=== PATIENT | female | born 1945 | race Caucasian/White ===

== ENCOUNTER 2017-09-25 21:07 | Emergency (ER) | payer OTHER ==
[2017-09-25 21:13] VITALS: PULSE 82; TEMP 99; BMI 28.7
[2017-09-25 21:25] VITALS: BP 177/89
--- NOTE | 2017-09-25 22:35 | PDOC ---
History of Present Illness - General Chief Complaint: Injury Stated Complaint: FALL INJURY Time Seen by Provider: 09/25/17 22:34 Past History - Past Medical History Allergies/Adverse Reactions: Allergies Allergy/AdvReac Type Severity Reaction Status Date / Time Sulfa (Sulfonamide Allergy Verified 04/19/13 11:35 Antibiotics) Home Medications: Ambulatory Orders Furosemide 5 mg PO DAILY 09/25/17 Metformin HCl 750 mg PO DAILY 09/25/17 Rivaroxaban [Xarelto -] 20 mg PO DAILY 09/25/17 Simvastatin 10 mg PO 09/25/17 HTN: Yes Hypercholesterolemia: Yes Thyroid Disease: Yes - Suicide/Smoking/Psychosocial Hx Smoking Status: No Smoking History: Never smoked Have you smoked in the past 12 months: No Number of Cigarettes Smoked Daily: 0 Information on smoking cessation initiated: No Hx Alcohol Use: No Drug/Substance Use Hx: No *Physical Exam - Vital Signs Last Vital Signs Temp Pulse Resp BP Pulse Ox 99 F 82 18 177/89 98 09/25/17 21:11 09/25/17 21:11 09/25/17 21:11 09/25/17 21:11 09/25/17 21:11 *DC/Admit/Observation/Transfer - Attestations Physician Attestion: 09/25/17 22:35 I, Dr. Ramírez Sarmiento, attest that this document has been prepared under my direction and personally reviewed by me in its entirety. I further attest, that it accurately reflects all work, treatment, procedures and medical decision -making performed by me.
--- NOTE | 2017-09-25 22:38 | PDOC ---
History of Present Illness - General Chief Complaint: Injury Stated Complaint: FALL INJURY Time Seen by Provider: 09/25/17 22:34 - History of Present Illness Initial Comments: 72 year old female with PMH of afib, DM (non-insluin dependent), and HLD presenting 5 hours after head trauma after mechanical fall and occipital head trauma. She did not lose consciousness or experience any focal neurological deficit directly after the fall or at any point after. She presented to the ED because she wanted the scalp laceration evaluated. Denies fevers, chills, nausea , vomiting, diarrhea, visual changes, or any other symptoms. 09/25/17 22:42 Past History - Past Medical History Allergies/Adverse Reactions: Allergies Allergy/AdvReac Type Severity Reaction Status Date / Time Sulfa (Sulfonamide Allergy Verified 04/19/13 11:35 Antibiotics) Home Medications: Ambulatory Orders Furosemide 5 mg PO DAILY 09/25/17 Metformin HCl 750 mg PO DAILY 09/25/17 Rivaroxaban [Xarelto -] 20 mg PO DAILY 09/25/17 Simvastatin 10 mg PO 09/25/17 HTN: Yes Hypercholesterolemia: Yes Thyroid Disease: Yes - Suicide/Smoking/Psychosocial Hx Smoking Status: No Smoking History: Never smoked Have you smoked in the past 12 months: No Number of Cigarettes Smoked Daily: 0 Information on smoking cessation initiated: No Hx Alcohol Use: No Drug/Substance Use Hx: No Review of Systems - Review of Systems Constitutional: No: Chills, Fever, Loss of Appetite HEENTM: No: Eye Pain, Blurred Vision Respiratory: No: Cough, Shortness of Breath Cardiac (ROS): No: Chest Pain, Edema ABD/GI: No: Constipated, Diarrhea, Nausea, Vomiting : No: Burning, Dysuria, Discharge, Incontinence Musculoskeletal: No: Joint Pain Integumentary: No: Change in Color Neurological: No: Numbness, Paresthesia, Tingling Psychiatric: No: Anxiety, Stressors *Physical Exam - Vital Signs Last Vital Signs Temp Pulse Resp BP Pulse Ox 99 F 82 18 177/89 98 09/25/17 21:11 09/25/17 21:11 09/25/17 21:11 09/25/17 21:11 09/25/17 21:11 - Physical Exam General Appearance: Yes: Nourished, Appropriately Dressed. No: Apparent Distress HEENT: positive: EOMI, SAKINA, Normal ENT Inspection, Normal Voice, Other ( Superior occiptal scalp abrasion that has clotted.) Neck: positive: Trachea midline, Normal Thyroid, Supple. negative: Tender, Rigid Respiratory/Chest: positive: Lungs Clear, Normal Breath Sounds. negative: Chest Tender, Respiratory Distress Cardiovascular: positive: Regular Rhythm, Regular Rate. negative: S1, S2, Murmur Gastrointestinal/Abdominal: positive: Normal Bowel Sounds, Flat, Soft. negative : Tender Musculoskeletal: positive: Normal Inspection, CVA Tenderness Extremity: positive: Normal Capillary Refill, Normal Inspection, Normal Range of Motion. negative: Tender Integumentary: positive: Normal Color, Dry, Warm ED Treatment Course - LABORATORY CBC & Chemistry Diagram: 09/25/17 23:18 09/25/17 23:18 Medical Decision Making - Medical Decision Making 72 year old female on Xarelto presenting 5 hours after fall and head trauma during which she did not lose consciousness and was fully neurologically intact for the past [address] her head without contrast to rule out bleed and will get basic labs in case. Onyl one CT scan will be adequate as we will perform her CT approximately 6 hours after the trauma. 09/25/17 23:12 Patient signed out to Dr. Anand in stable condition pending CT head and lab results. 09/25/17 23:55 *DC/Admit/Observation/Transfer Diagnosis at time of Disposition: Traumatic injury of head Qualifiers: Encounter type: initial encounter Qualified Code(s): S09.90XA - Unspecified injury of head, initial encounter; S09.90XA - Unspecified injury of head, initial encounter - Referrals Referrals: Amilcar Cota MD, [Primary Care Provider] - - Patient Instructions - Post Discharge Activity
--- NOTE | 2017-09-25 23:04 | PDOC ---
Attending Attestation - Resident Resident Name: Zoë Roy - ED Attending Attestation I have performed the following: I have examined & evaluated the patient, The case was reviewed & discussed with the resident, I agree w/resident's findings & plan, Exceptions are as noted - HPI HPI: 09/25/17 23:03 Fall, Hit Head, On Xarelto, 6 hours ago, small lac - Physicial Exam PE: 09/25/17 23:03 Bleeding controlled, Alert, Oriented - Medical Decision Making 09/25/17 23:[address] Roy's Assessment and Plan
[2017-09-25 23:26] LABS: BASOPHIL 0.5 % (0-2.0); EOSINOPHIL 0.5 % (0-4.5); MCH 31.6 pg (25.7-33.7); MCHC 35.1 g/dl (32.0-36.0); MEAN PLT VOLUME 9.5 fl (7.5-11.1); NEUTROPHILS 78.5 % (42.8-82.8); PLATELET COUNT 234 K/MM3 (134-434); RDW 13.1 % (11.6-15.6); WHITE BLOOD COUNT 10.3 K/mm3 (4.0-10.0)
[2017-09-25 23:48] LABS: INR 1.55 (0.82-1.09); PROTHROMBIN TIME (PATIENT) 17.5 SEC (9.98-11.88)
[2017-09-26] LABS: ALBUMIN 3.7 g/dl (3.4-5.0); ALK PHOS 113 U/L (45-117); ANION GAP 12 (8-16); BILIRUBIN,TOTAL 0.4 mg/dL (0.2-1.0); CALCIUM 8.5 mg/dL (8.5-10.1); CO2 26 mmol/L (21-32); CREATININE 0.7 mg/dL (0.55-1.02); GLUCOSE,RANDOM 207 mg/dL (74-106); SGOT/AST 8 U/L (15-37); SGPT/ALT 23 U/L (12-78); TOT PROT 7.2 g/dl (6.4-8.2)
--- NOTE | 2017-09-26 00:57 | PDOC ---
*Physical Exam - Vital Signs Last Vital Signs Temp Pulse Resp BP Pulse Ox 99 F 82 18 177/89 98 09/25/17 21:11 09/25/17 21:11 09/25/17 21:11 09/25/17 21:11 09/25/17 21:11 - Physical Exam General Appearance: Yes: Nourished, Appropriately Dressed HEENT: positive: EOMI, SAKINA Respiratory/Chest: positive: Lungs Clear Cardiovascular: positive: S1, S2 Gastrointestinal/Abdominal: positive: Soft Integumentary: positive: Other (5 cm superior occipital scalp laceration; clotted/not actively bleeding) Neurologic: positive: astronautical engineer II-XII NML intact, Fully Oriented, Alert, Motor Strength 5/5, Other (Normal Gait). negative: Confused, Disoriented ED Treatment Course - LABORATORY CBC & Chemistry Diagram: 09/25/17 23:18 09/25/17 23:18 - ADDITIONAL ORDERS Additional order review: Laboratory Results 09/25/17 09/25/17 23:18 23:18 PT with INR 17.50 H INR 1.55 H Sodium 140 Potassium 3.7 Chloride 102 Carbon Dioxide 26 Anion Gap 12 BUN 14 Creatinine 0.7 Creat Clearance w eGFR > 60 Random Glucose 207 H Calcium 8.5 Total Bilirubin 0.4 AST 8 L ALT 23 Alkaline Phosphatase 113 Total Protein 7.2 Albumin 3.7 09/25/17 23:18 RBC 4.38 MCV 90.0 MCHC 35.1 RDW 13.1 MPV 9.5 Neutrophils % 78.5 Lymphocytes % 14.1 Monocytes % 6.4 Eosinophils % 0.5 Basophils % 0.5 Medical Decision Making - Medical Decision Making 09/26/17 01:23 Patient signed out by Dr. Roy (Resident) under the care of Dr. Sarmiento (Attending ) Patient is a 72 y.o. female who presents after a mechanical fall without any LOC. During entire ED course patient was alert, neurologically intact and denies any mental status changes or visual disturbances. CT Head was negative for acute intracranial process. Patient had a 5 cm scalp laceration at the superior occipital lobe that was cleaned and clinical decision was made to not scalp or hair knot tie the laceration as clot had formed. As patient is on Rivaroxaban, patient was counseled on the importance of returning to ED should she experience repeat bleed in addition to being counseled on general return precautions. At the time of discharge patient was improved, ambulatory and understood her post discharge care. *DC/Admit/Observation/Transfer Diagnosis at time of Disposition: Head trauma Qualifiers: Encounter type: initial encounter Qualified Code(s): S09.90XA - Unspecified injury of head, initial encounter - Discharge Dispostion Disposition: HOME Condition at time of disposition: Good - Referrals Referrals: Amilcar Cota MD, MD [Primary Care Provider] - - Patient Instructions Additional Instructions: Please return to the Emergency Department should you have any worsening or concerning symptoms including confusion, vomiting or severe headache. Please follow up with your PCP in the next 1 week. - Post Discharge Activity
== END 2017-09-26 01:27 | disposition home or self-care (01) ==
LOC: JER 21:07
DX: S01.01XA Laceration without foreign body of scalp, initial encounter (principal); W07.XXXA Fall from chair, initial encounter; Y93.89 Activity, other specified; Y92.018 Other place in single-family (private) house as the place of occurrence of the external cause; I48.91 Unspecified atrial fibrillation; Z79.01 Long term (current) use of anticoagulants; I10 Essential (primary) hypertension; Z79.84 Long term (current) use of oral hypoglycemic drugs; E78.00 Pure hypercholesterolemia, unspecified; E11.9 Type 2 diabetes mellitus without complications
CPT/HCPCS: 36415; 70450-TC; 80053; 85025; 85610; 99281-25

== ENCOUNTER → 2018-08-31 | Day surgery (SDC) | payer OTHER ==
--- NOTE | 2018-09-02 11:04 | PATH ---
Surgical Pathology Report Patient Name: PILAR WHIPPLE [facility]. Rec. #: [id number] /Age/Gender: 1945 (Age: 73) / F Account: [id number] Location: [facility]OLOG[facility] Taken: 08/31/2018 Received: 08/31/2018 Reported: 09/02/2018 Physicians: Cassie Infante Specimen(s) Received RIGHT BREAST 2:30 1.78CM Clinical History Palpable mass suspicious for malignant Final Diagnosis RIGHT BREAST, 2-3:00, ULTRASOUND GUIDED BIOPSY: INVASIVE DUCTAL CARCINOMA, POORLY DIFFERENTIATED. THE CARCINOMA MEASURES AT LEAST 1 CM IN THIS SLIDE. Results of Estrogen Receptor (ER) and Progesterone Receptor (MN) studies performed on block "1" at [facility] are as follows: ER (clone [id number] mouse monoclonal antibody by [employer]): 100% nuclear staining with strong intensity (Positive). MN (clone16 mouse monoclonal antibody by [employer]): 30% nuclear staining with strong intensity (Positive). Reports for Her 2 and Ki-67 are pending. This case was discussed with Dr. Cline on September 02, 2018. Electronically Signed Tony Messina M.D. Addendum Reported: 09/04/2018 Addendum Diagnosis Biomarker Studies Results of Her2 (IHC) & Ki-67 studies performed on this specimen at [place], [place] ([id number]) interpreted at [facility] are as follows: Her2 IHC (EP3 from [employer], formerly known as [id number], using Corado Polymer Refine detection kit): Negative (0) Ki-67: 40% (high proliferative index) Tony Messina M.D. Gross Description Received in formalin labeled "right breast 2-3;00 palpable suspicious mass ultrasound guided core biopsy" are multiple bee to yellow cylindrical portions of fibroadipose tissue ranging from 1-1.5 cm in length and averages 0.2 cm in diameter. The specimen is entirely submitted in 2 cassettes. Time from tissue taken to put in formalin: Less than one minute Total formalin fixation time: Between 9-10 hours. DONNA/08/31/2018 rob/08/31/2018
== END | disposition home or self-care (01) ==
LOC: JRADUS-SUR 12:06
PROVIDERS: ATTEND Specialist
PROC: 0HBT3ZX Excision of Right Breast, Percutaneous Approach, Diagnostic (ICD-10-PCS; principal; 2018-08-31)
DX: C50.411 Malignant neoplasm of upper-outer quadrant of right female breast (principal); Z17.0 Estrogen receptor positive status [ER+]; N63.12 Unspecified lump in the right breast, upper inner quadrant
CPT/HCPCS: 19083; 77065-TC; 87899; 88305-TC; A4648

== ENCOUNTER 2018-10-06 12:50 | Day surgery (SDC) | payer OTHER ==
[2018-09-24 15:43] VITALS: BMI 29.2
--- NOTE | 2018-10-01 11:34 | HP ---
Admitting History and Physical - Primary Care Physician PCP: Tatiana Giordano - Admission Chief Complaint: Right breast cancer History of Present Illness: 73 year old postmenapausal female with right breast mass noted. Mammogram08/2018 showed 1.8 cm irregular mass 2 to 3:00. Right breast US showed 1.9x1.3x1.4 cm irregular mass. 08/2018 Right US core biopsy invasive ductal carcinoma ER+AL+ HER2-.. Breast MRI showed localized cancer. History Source: Patient Limitations to Obtaining History: No Limitations - Past Medical History Cardiovascular: Yes: AFIB (on xeralto), HTN, Hyperlipdemia ENT: Yes: Other (allergies) Endocrine: Yes: Diabetes Mellitus - Smoking History Smoking history: Never smoked Have you smoked in the past 12 months: No Aproximately how many cigarettes per day: 0 - Alcohol/Substance Use Hx Alcohol Use: Yes (occ glass of wine) Home Medications - Allergies Allergies/Adverse Reactions: Allergies Allergy/AdvReac Type Severity Reaction Status Date / Time Sulfa (Sulfonamide Allergy Verified 09/24/18 15:30 Antibiotics) - Home Medications Home Medications: Ambulatory Orders Rivaroxaban [Xarelto -] 20 mg PO DAILY 09/25/17 metFORMIN HCL [Metformin HCl] 750 mg PO DAILY 09/25/17 Amlodipine Besylate 5 mg PO DAILY 09/24/18 Atenolol [Tenormin] 50 mg PO DAILY 09/24/18 Furosemide [Lasix -] 20 mg PO ASDIR 09/24/18 Levothyroxine [Synthroid -] 100 mcg PO DAILY 09/24/18 Simvastatin 40 mg PO DAILY 09/24/18 Family Disease History - Family Disease History Family Disease History: CA: Father (lung ca 52) Physical Examination Constitutional: Yes: No Distress Breast(s): Yes: Other (right breast at 2;30 10 cmFN 2.0 cm firm mass left negative no adenopathy) Problem List - Problems (1) Breast cancer, right breast Code(s): C50.911 - MALIGNANT NEOPLASM OF UNSP SITE OF RIGHT FEMALE BREAST Qualifiers: Breast location: upper inner quadrant of breast Estrogen receptor status: positive Patient sex: female Qualified Code(s): C50.211 - Malignant neoplasm of upper-inner quadrant of right female breast; Z17.0 - Estrogen receptor positive status [ER+] Assessment/Plan Right breast wide excision , lymphoscintogram sentenel node biopsy , possible axillary node dissection
[2018-10-06] MEDS ORDERED: ISOSULFAN BLUE 10 MG/ML VIAL SQ ONE (13:07)
[2018-10-06] MEDS ORDERED: BUPIVACAINE HCL/PF 0.5% (5MG/ML) 10 ML VIAL ONE (13:07)
[2018-10-06] MEDS ORDERED: SUCCINYLCHOLINE CHLORIDE 200 MG/10 ML VIAL ONE (13:42)
[2018-10-06] MEDS ORDERED: PROPOFOL 20 ML ONE ×4 (13:42→14:51)
[2018-10-06] MEDS ORDERED: MIDAZOLAM HCL 2 MG/2 ML SINGLE DOSE VIAL ONE (13:43)
[2018-10-06] MEDS ORDERED: ONDANSETRON 4 MG/2 ML VIAL ONE ×2 (14:37→16:09)
[2018-10-06] MEDS ORDERED: ceFAZolin SODIUM 1 GM VIAL ONE (14:37)
[2018-10-06] MEDS ORDERED: oxyCODONE HCL 5 MG TABLET PO PRN ×2 (15:42)
[2018-10-06] MEDS ORDERED: ONDANSETRON 4 MG/2 ML VIAL IVPUSH PRN (15:42)
[2018-10-06] MEDS ORDERED: LACTATED RINGERS SOLUTION 1,000 ML IV SCH (15:45)
[2018-10-06 16:03] VITALS: TEMP 97.9
[2018-10-06] MEDS ORDERED: ONDANSETRON 4 MG/2 ML VIAL IVPUSH ONE (16:15)
--- NOTE | 2018-10-06 17:42 | OP ---
DATE OF OPERATION: 10/06/2018 PREOPERATIVE DIAGNOSIS: Right breast cancer. POSTOPERATIVE DIAGNOSIS: Right breast cancer. PROCEDURE: Right breast partial mastectomy with sentinel node biopsy and complex tissue transfer. ANESTHESIA: General, intubated. ATTENDING SURGEON: Tatiana Giordano MD MUNICIPAL FIREFIGHTER: CATHY Girard ESTIMATED BLOOD LOSS: Minimal. COMPLICATIONS: None. PROCEDURE: Patient was made aware of the risks and benefits of the procedure and consented. Preoperatively patient went to the nuclear medicine department where her right breast was injected into the peritumoral skin with radioactive tracer. She was then placed in a supine position on the operating room table. After general anesthesia was induced, the patient was intubated. Then 2.5 mL of 1% isosulfan blue were infiltrated into the peritumoral tissues. The operative site was then prepped and draped in usual sterile fashion. Waiting approximately 10 minutes with gentle manual compression, a curvilinear incision as made in the right axilla. Using blunt and sharp dissection tissues were dissected down to the axilla where 1 blue hot lymph node was identified as well as an adjacent node and these were excised and submitted for permanent sectioning. Palpation of the rest of the axilla and interrogation with the navigator showed no evidence of suspicious nodes or uptake. The wound was copiously irrigated with normal saline. Hemostasis was maintained by electrocautery. The wound was then closed with deep 3-0 Vicryl, followed by a running subcuticular 4-0 Monocryl. The right breast was then approached. An elliptical incision was made in the radial fashion overlying the breast mass which was very close to the skin. Using electrocautery, tissues were dissected down to the pectoral fascia, and the mass was excised and submitted with a short suture superior and long suture lateral. Specimen radiographed to confirm the presence of the index lesion and clip. Additional segments were taken superior, inferior, medial, lateral, and deep with clips at the new margin. No anterior margin was taken because the skin overlying the tumor was removed. Using electrocautery, thick skin flaps were made by taking the breast tissue off the pectoralis muscle which was then rotated into the defect and closed with multiple areas [id number] suture of 3-0 Vicryl. The skin was then closed with interrupted 3-0 Vicryl followed by running subcuticular 4-0 Monocryl. Steri-Strips, sterile dressing, and a compression bra were then applied. The patient tolerated the procedure and was transferred to recovery in excellent condition. Cassie [id number]
[2018-10-06 18:12] VITALS: BP 148/61; PULSE 54
--- NOTE | 2018-10-09 12:25 | PATH ---
Surgical Pathology Report Patient Name: PILAR WHIPPLE [facility]. Rec. #: [id number] /Age/Gender: 1945 (Age: 73) / F Account: [id number] Location: [facility] Taken: 10/06/2018 Received: 10/06/2018 Reported: 10/09/2018 Physicians: Tatiana Giordano M.D. Specimen(s) Received A: RIGHT AXILLARY SENTINEL NODES #1 B: RIGHT BREAST WIDE EXCISION C: SUPERIOR MARGIN RIGHT BREAST D: INFERIOR MARGIN RIGHT BREAST E: LATERAL MARGIN RIGHT BREAST F: MEDIAL MARGIN RIGHT BREAST G: POSTERIOR MARGIN RIGHT BREAST Clinical History Invasive breast carcinoma Final Diagnosis A. RIGHT AXILLARY SENTINEL NODES #1, EXCISION: TWO LYMPH NODES, NEGATIVE FOR METASTATIC CARCINOMA (0/2). B. RIGHT BREAST WIDE EXCISION: INVASIVE DUCTAL CARCINOMA, POORLY DIFFERENTIATED (TUBULE SCORE 3/3, NUCLEAR GRADE: 3/3, MITOTIC SCORE: 3/ 3, TOTAL MEHNAZ SCORE: 9/9), MEASURING 2.2 CM IN GREATEST DIMENSION (GROSS MEASUREMENT). MARGINS ARE UNINVOLVED BY INVASIVE CARCINOMA. THE INVASIVE CARCINOMA TO CLOSEST MARGIN (POSTERIOR MARGIN) IS 2 MM. DUCTAL CARCINOMA IN SITU (DCIS) PRESENT, HIGH NUCLEAR GRADE, WITH CENTRAL NECROSIS. DCIS IS AT 2 MM FROM THE CLOSEST MARGIN (POSTERIOR MARGIN). SEE ALSO SEPARATE ADDITIONAL SPECIMEN (C-G) FOR FINAL MARGINS. LYMPHOVASCULAR INVASION IS IDENTIFIED. SKIN IS PRESENT AND UNINVOLVED BY CARCINOMA. PRIOR BIOPSY SITE CHANGES ARE PRESENT. PATHOLOGIC STAGE (pTNM): pT2 pN0 SEE ALSO INVASIVE CARCINOMA CASE SUMMARY BELOW. C. SUPERIOR MARGIN, RIGHT BREAST, EXCISION: BENIGN BREAST TISSUE. D. INFERIOR MARGIN, RIGHT BREAST, EXCISION: BENIGN BREAST TISSUE. E. LATERAL MARGIN, RIGHT BREAST, EXCISION: BENIGN BREAST TISSUE. F. MEDIAL MARGIN, RIGHT BREAST, EXCISION: BENIGN BREAST TISSUE. G. POSTERIOR MARGIN, RIGHT BREAST, EXCISION: BENIGN BREAST TISSUE. Comments Breast Invasive Carcinoma: Surgical Pathology Case Summary (Based on AJCC TNM 8 th edition) Procedure _x_ Excision (less than total mastectomy) Specimen Laterality _x_ Right Tumor Size _x_ Greatest dimension of largest invasive focus >1 mm (specify exact measurement) (millimeters): 22 mm Histologic Type _x_ Invasive carcinoma of no special type (ductal, not otherwise specified) Histologic Grade (Mehnaz Histologic Score) Glandular (Acinar)/Tubular Differentiation _x_ Score 3 (<10% of tumor area forming glandular/tubular structures) Nuclear Pleomorphism _x_ Score 3 Mitotic Rate _x_ Score 3 Overall Grade _x_ Grade 3 (scores of 8 or 9) Tumor Focality _x_ Single focus of invasive carcinoma Ductal Carcinoma In Situ (DCIS) _x_ DCIS is present in specimen _x_ Positive for EIC Margins Invasive Carcinoma Margins _x_ Uninvolved by invasive carcinoma Distance from closest margin (millimeters): 2 mm Closest margin: posterior margin, also see specimen G for final margin DCIS Margins _x_ Uninvolved by DCIS Distance from closest margin (millimeters): 2 mm Closest margin: posterior margin, also see specimen G for final margin Regional Lymph Nodes Number of Lymph Nodes with Macrometastases (>2 mm): 0 Number of Lymph Nodes with Micrometastases (>0.2 mm to 2 mm and/or >200 cells): 0 Number of Lymph Nodes with Isolated Tumor Cells (=0.2 mm and =200 cells): 0 Number of Lymph Nodes Examined: 2 Number of Alba Nodes Examined: 2 Treatment Effect _x_ No known presurgical therapy Lymphovascular Invasion _x_ Present Pathologic Stage Classification (pTNM, AJCC 8th Edition) Primary Tumor (Invasive Carcinoma) (pT) pT2:Tumor >20 mm but =50 mm in greatest dimension Regional Lymph Nodes (pN) Modifier (required only if applicable) _x_ (sn): Alba node(s) evaluated. If 6 or more nodes (sentinel or nonsentinel) are removed, this modifier should not be used. Category (pN) _x_ pN0: No regional lymph node metastasis identified or ITCs only Biomarker Studies Results of ER and NH studies performed on prior biopsy ([id number]) at [facility] are as follows: ER (clone [id number] mouse monoclonal antibody by [employer]): 100 % nuclear staining with strong intensity (Positive). NH (clone16 mouse monoclonal antibody by [employer]): 30 % nuclear staining with strong intensity (Positive). Results of Her2 (IHC) & Ki-67 studies performed on prior biopsy ([id number]) at [place], [place] ([id number]) are as follows: Her2 IHC (EP3 from [employer], formerly known as [id number], using [employer]ado Polymer Refine detection kit): Negative (0) Ki67: 40% (high proliferative index) Positive and negative controls (internal if applicable) show appropriate results. Formalin fixation and cold ischemic times are within current ASCO/CAP recommendations for ER, NH and Her2 testing. Electronically Signed Tony Messina M.D. Gross Description A. Received in formalin labeled "right axillary sentinel node," are 2 bee lymph nodes with attached fat measuring 0.8 and 1.4 cm in greatest dimension. The lymph nodes are entirely submitted in 2 cassettes as follows: 1-one bisected lymph node; 2-one whole lymph node. B. Received in formalin, labeled "right breast wide excision," is a 5.0 x 4.7 x 2.9 cm. bee-yellow, irregular, portion of fibroadipose tissue. There is no needle localization wire present. There is a short suture marking the superior aspect and a long suture marking the lateral aspect, per the surgeon. The anterior surface displays a 3.4 x 1.6 cm bee, elliptical, unremarkable portion of skin. The specimen is inked as follows: Superior blue; inferior green; lateral red; medial yellow; posterior black. The specimen is serially sectioned from medial to lateral. Sectioning reveals a 2.2 x 1.7 x 1.6 cm bee, indurated mass at 0.1 cm from the posterior margin. There is a ragland metallic biopsy clip identified within the mass. The mass is 0.4 cm from the superior margin, 0.4 cm from the inferior margin and 0.5 cm from the medial margin. Manager Multicultural sections are submitted in 8 cassettes as follows: 1-mass with posterior margin; 2-additional mass with posterior margin; 3-mass with superior margin; 4-5-mass with inferior margin; 6-medial margin; 7-lateral margin; 8-skin. Time to formalin fixation: 29 minutes Total formalin fixation time: Approximately 27 hours. C. Received in formalin labeled "superior margin right breast," is a 2.2 x 1.4 x 0.4 cm portion of fibroadipose tissue with a clip marking the new margin, per the surgeon. The new margin is inked green and the specimen is serially sectioned. The specimen is entirely submitted in 3 cassettes. D. Received in formalin labeled "inferior margin right breast," is a 1.6 x 1.0 x 0.4 cm portion of fibroadipose tissue with a clip marking the new margin, the surgeon. The new margin is inked green and the specimen is serially sectioned. The specimen is entirely submitted in 2 cassettes. E. Received in formalin labeled "lateral margin right breast," is a 1.2 x 1.0 x 0.4 cm portion of fibroadipose tissue with a clip marking the new margin, per the surgeon. The new margin is inked green and the specimen is serially sectioned. The specimen is entirely submitted in 2 cassettes. F. Received in formalin labeled "medial margin right breast," is a 1.4 x 0.9 x 0.4 cm portion of fibroadipose tissue with a clip marking the new margin, per the surgeon. The new margin is inked green and the specimen is serially sectioned. The specimen is entirely submitted in 2 cassettes. G. Received in formalin labeled "posterior margin right breast," is a 3.0 x 1.8 x 0.4 cm portion of fibroadipose tissue with a clip marking the new margin, per the surgeon. The new margin is inked green and the specimen is serially sectioned. The specimen is entirely and sequentially submitted in 4 cassettes. 10/07/2018 saudi10/07/2018
== END 2018-10-06 18:00 | disposition home or self-care (01) ==
LOC: FASU 12:50
PROVIDERS: ATTEND Surgery Surgical Oncology
PROC: 0HBT0ZZ Excision of Right Breast, Open Approach (ICD-10-PCS; principal; 2018-10-06 14:00)
PROC: 0JX60ZC Transfer Chest Subcutaneous Tissue and Fascia with Skin, Subcutaneous Tissue and Fascia, Open Approach (ICD-10-PCS; 2018-10-06 14:00)
DX: C50.211 Malignant neoplasm of upper-inner quadrant of right female breast (principal); Z17.0 Estrogen receptor positive status [ER+]; I10 Essential (primary) hypertension; I48.91 Unspecified atrial fibrillation; E78.5 Hyperlipidemia, unspecified; E11.9 Type 2 diabetes mellitus without complications; Z79.01 Long term (current) use of anticoagulants
CPT/HCPCS: 78195-TC; 82962; 88307-TC; 94760; A9541

== ENCOUNTER 2024-01-26 15:26 | Emergency (ER) | payer OTHER ==
[2024-01-26] MEDS ORDERED: LIDOCAINE 5% TOPICAL PATCH ONE (16:59)
[2024-01-26] MEDS: LIDOCAINE 5% TOPICAL PATCH TP ONE (17:03)
[2024-01-26 17:38] LABS: HEMATOCRIT 50.6 % (32.4-45.2); HEMOGLOBIN 16.7 G/dL (10.7-15.3); MCH 33.3 pg (25.7-33.7); MEAN CELL VOLUME 100.8 fl (80-96); MEAN PLT VOLUME 9.9 fl (7.5-11.1); PLATELET COUNT 150.4 10^3/uL (134-434); RBC 5.02 10^6/uL (3.60-5.2); RDW 18.6 % (11.6-15.6); WHITE BLOOD COUNT 6.4 10^3/uL (4.0-10.8)
[2024-01-26 17:50] LABS: PLATELET ESTIMATE ADEQUATE
[2024-01-26 17:51] LABS: ALBUMIN 3.7 g/dl (3.4-5.0); BILIRUBIN,TOTAL 2.7 mg/dl (0.2-1); CREATININE 0.9 mg/dl (0.6-1.3); POTASSIUM 4.3 mmol/L (3.5-5.1); TOT PROT 6.8 g/dl (6.4-8.2)
[2024-01-26 17:58] VITALS: BP 135/66; PULSE 80; RESP 16; TEMP 98.3; BMI 29.7
[2024-01-26] MEDS ORDERED: LIDOCAINE PATCH REMOVAL MC SCH (22:00)
== END 2024-01-26 19:37 | disposition home or self-care (01) ==
LOC: FER 15:26
DX: S32.010A Wedge compression fracture of first lumbar vertebra, initial encounter for closed fracture (principal); M54.9 Dorsalgia, unspecified; R09.3 Abnormal sputum; W01.0XXA Fall on same level from slipping, tripping and stumbling without subsequent striking against object, initial encounter; Y93.01 Activity, walking, marching and hiking; Y92.009 Unspecified place in unspecified non-institutional (private) residence as the place of occurrence of the external cause; Z20.822 Contact with and (suspected) exposure to COVID-19
CPT/HCPCS: 0241U-QW; 36415; 71046-TC-FY; 72100-TC-FY; 80053; 85027; 99284-25